=== PATIENT | male | born 1975 | race Caucasian/White ===

== ENCOUNTER 2020-08-13 14:11 | Emergency (ER) | payer BC ==
[2020-08-13 15:24] LABS: HEMOGLOBIN 16.8 gm/dl (14.0-17.5); RED BLOOD COUNT 5.1 M/UL (4.20-5.50); WHITE BLOOD COUNT 7.9 K/UL (4.5-11.0)
[2020-08-13 15:49] LABS: BUN/CREATININE RATIO 12 (0-10)
== END 2020-08-13 15:59 | disposition home or self-care (01) ==
LOC: ER1 14:11
PROVIDERS: Physician Assistant
DX: R10.31 Right lower quadrant pain (principal); K21.9 Gastro-esophageal reflux disease without esophagitis; I10 Essential (primary) hypertension; Z88.8 Allergy status to other drugs, medicaments and biological substances
CPT/HCPCS: 80053; 81001; 85025; 99284; Q9967

== ENCOUNTER 2021-01-03 12:08 | Inpatient (IN) | payer BC ==
[~2021-01-03] VITALS: Ht 177.8 cm; Wt 93.0 kg
[2021-01-03 12:47] LABS: HEMOGLOBIN 16.9 gm/dl (14.0-17.5); RED BLOOD COUNT 5.09 M/UL (4.20-5.50); WHITE BLOOD COUNT 5.4 K/UL (4.5-11.0)
[2021-01-03 13:12] LABS: BUN/CREATININE RATIO 13 (0-10)
[2021-01-03] MEDS ORDERED: LOSARTAN POTAS100 MG PO (16:29)
[2021-01-03] MEDS ORDERED: AUGMENTIN 875-1 EACH PO (16:29)
[2021-01-03] MEDS ORDERED: METOPROLOL SUCC25 MG PO (16:29)
[2021-01-03] MEDS ORDERED: PROTONIX40 MG PO (16:30)
[2021-01-04 06:26] LABS: HEMOGLOBIN 15.1 gm/dl (14.0-17.5); RED BLOOD COUNT 4.63 M/UL (4.20-5.50)
[2021-01-04 06:31] LABS: WHITE BLOOD COUNT 3.4 K/UL (4.5-11.0)
[2021-01-04 06:41] LABS: BUN/CREATININE RATIO 17 (0-10)
[2021-01-05 07:06] LABS: RED BLOOD COUNT 4.57 M/UL (4.20-5.50)
[2021-01-05 07:14] LABS: WHITE BLOOD COUNT 9.5 K/UL (4.5-11.0)
[2021-01-05 07:47] LABS: BUN/CREATININE RATIO 18 (0-10)
[2021-01-06 07:12] LABS: HEMOGLOBIN 14.9 gm/dl (14.0-17.5); RED BLOOD COUNT 4.68 M/UL (4.20-5.50); WHITE BLOOD COUNT 9.3 K/UL (4.5-11.0)
[2021-01-06 08:09] LABS: BUN/CREATININE RATIO 21 (0-10)
[2021-01-07] MEDS ORDERED: VITAMIN C 500500 MG PO (15:20)
[2021-01-07] MEDS ORDERED: DECADRON6 MG PO (15:20)
== END 2021-01-07 19:41 | disposition home or self-care (01) | DRG 871 ==
LOC: ER1 12:08 → MED SURG 4 16:11 → CDU 16:11 → MED SURG 4 17:23
PROVIDERS: Emergency Medicine; Internal Medicine; ADMIT Internal Medicine
PROC: 8E0ZXY6 Isolation (ICD-10-PCS; principal; 2021-01-03)
PROC: XW033E5 Introduction of Remdesivir Anti-infective into Peripheral Vein, Percutaneous Approach, New Technology Group 5 (ICD-10-PCS; 2021-01-03)
PROC: 3E0333Z Introduction of Anti-inflammatory into Peripheral Vein, Percutaneous Approach (ICD-10-PCS; 2021-01-03)
DX: A41.89 Other specified sepsis (principal); U07.1 COVID-19; J12.82 Pneumonia due to coronavirus disease 2019; J96.01 Acute respiratory failure with hypoxia; E87.3 Alkalosis; I10 Essential (primary) hypertension; R65.20 Severe sepsis without septic shock; K21.9 Gastro-esophageal reflux disease without esophagitis; I25.10 Atherosclerotic heart disease of native coronary artery without angina pectoris; E87.6 Hypokalemia; Z88.8 Allergy status to other drugs, medicaments and biological substances
CPT/HCPCS: 36415; 36600; 71045; 80048; 80053; 82550; 82553; 82803; 83036; 83605; 83690; 83735; 84484; 85025; 85027; 85379; 87040; 93005; 94640; 94664; 94760; 99285; J0696; J1100; J1650; J2405; J7030; Q9967